=== PATIENT | female | born 1985 | race Two or more races ===

== ENCOUNTER 2020-05-08 13:28 | Outpatient (CLI) | payer OTHER | END 2020-05-08 14:00 | disposition home or self-care (01) | LOC: OFIC 805 13:28 | PROVIDERS: ATTEND Otolaryngology Otology & Neurotology | DX: J32.4 Chronic pansinusitis (principal); J01.80 Other acute sinusitis; H93.12 Tinnitus, left ear; H93.8X2 Other specified disorders of left ear ==